=== PATIENT | female | born 1990 | race Caucasian/White ===

== ENCOUNTER 2017-07-10 12:00 | Emergency (ER) | payer OTHER ==
[~2017-07-10] VITALS: Wt 53.1 kg
[2017-07-10] MEDS ORDERED: IBUPROFEN 200 MG TAB PO ONE (13:30)
[2017-07-10 14:35] LABS: ADD UMIC NO; UR ASCORBIC ACID NEGATIVE (NEGATIVE); UR BILIRUBIN (Dip) NEGATIVE (NEGATIVE); UR BLOOD (Dip) NEGATIVE (NEGATIVE); UR CLARITY CLEAR (CLEAR); UR COLOR YELLOW (YELLOW); UR GLUCOSE (Dip) NEGATIVE (NEGATIVE); UR KETONES (Dip) NEGATIVE (NEGATIVE); UR LEUKOCYTE ESTERASE (Dip) NEGATIVE Leu/ul (NEGATIVE); UR NITRITE (Dip) NEGATIVE (NEGATIVE); UR SPECIFIC GRAVITY (Dip) 1.014 (1.003-1.030); UR TOTAL PROTEIN (Dip) NEGATIVE (NEGATIVE); UR UROBILINOGEN (Dip) NEGATIVE (NEGATIVE)
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
[2017-07-10] MEDS ORDERED: IBUP400T22 PO (15:16)
[2017-07-10] MEDS ORDERED: CYCL-319 PO (15:16)
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
[2017-07-10] MEDS ORDERED: ALBU8.5H3 INH (15:29)
== END 2017-07-10 15:41 | disposition home or self-care (01) ==
LOC: FTE 12:00
DX: M54.2 Cervicalgia (principal); M25.552 Pain in left hip; M25.562 Pain in left knee; R07.81 Pleurodynia
CPT/HCPCS: 71010; 73510; 73562; 81003; Z7502; Z7610